=== PATIENT | female | born 1995 | race Caucasian/White ===

== ENCOUNTER 2018-05-23 14:26 | Inpatient (IN) | payer OTHER ==
[2018-05-23] MEDS: LACTATED RINGER'S 1,000 ML IV (18:18)
[2018-05-24] MEDS: LACTATED RINGER'S 1,000 ML IV ×2 (00:45→08:32)
[2018-05-24 09:42] LABS: RUPTURE FETAL MEMBRANES NEGATIVE (NEGATIVE)
== END 2018-05-24 16:35 | disposition home or self-care (01) | DRG 833 ==
LOC: OBT 14:26 → L-D 14:26 → OBT 16:15 → L-D 16:15
PROVIDERS: Obstetrics & Gynecology
DX: O41.8X30 Other specified disorders of amniotic fluid and membranes, third trimester, not applicable or unspecified (principal); Z3A.34 34 weeks gestation of pregnancy
CPT/HCPCS: 76818; 84112

== ENCOUNTER 2018-05-31 07:03 | Outpatient (CLI) | payer OTHER | END 2018-05-31 08:10 | disposition home or self-care (01) | LOC: OBT 07:03 → L-D 07:04 → OBT 08:10 | DX: O36.8330 Maternal care for abnormalities of the fetal heart rate or rhythm, third trimester, not applicable or unspecified (principal); O41.93X0 Disorder of amniotic fluid and membranes, unspecified, third trimester, not applicable or unspecified; Z3A.35 35 weeks gestation of pregnancy | CPT/HCPCS: 76818 ==

== ENCOUNTER 2018-06-03 07:21 | Outpatient (CLI) | payer OTHER ==
[2018-06-03] MEDS: LACTATED RINGER'S 1,000 ML IV (10:29)
[2018-06-03] MEDS: LACTATED RINGER'S 1,000 ML IV* ×2 (11:23→12:25)
== END 2018-06-03 14:38 | disposition home or self-care (01) ==
LOC: OBT 07:21 → L-D 07:21 → OBT 14:38
DX: O41.03X0 Oligohydramnios, third trimester, not applicable or unspecified (principal); Z3A.36 36 weeks gestation of pregnancy
CPT/HCPCS: 76816; 76818; 96360; 96361

== ENCOUNTER 2018-06-05 08:14 | Inpatient (IN) | payer OTHER ==
[2018-06-05] MEDS ORDERED: ACETAMINOPHEN 325 MG TAB PO (09:30)
[2018-06-05] MEDS: LACTATED RINGER'S 1,000 ML IV ×2 (10:40→17:01)
[2018-06-05] MEDS ORDERED: RANITIDINE 150 MG TAB PO (14:00)
[2018-06-05] MEDS ORDERED: CALCIUM CARBONATE 500 MG CHEW TAB PO (14:00)
[2018-06-05 15:23] LABS: RUPTURE FETAL MEMBRANES NEGATIVE (NEGATIVE)
[2018-06-06] MEDS: LACTATED RINGER'S 1,000 ML IV ×2 (01:30→10:14)
[2018-06-06] MEDS: PRENATAL VITAMIN PO (10:14)
[2018-06-06] MEDS: INFLUENZA VIRUS VACCINE 0.5 ML (DISPENSING) IM* (14:21)
== END 2018-06-06 14:40 | disposition home or self-care (01) | DRG 833 ==
LOC: OBT 08:14 → L-D 08:17 → OBT 09:07 → L-D 09:07 → PP1 10:50
PROVIDERS: Obstetrics & Gynecology
DX: O41.03X0 Oligohydramnios, third trimester, not applicable or unspecified (principal); Z3A.36 36 weeks gestation of pregnancy
CPT/HCPCS: 76815; 76818; 84112

== ENCOUNTER 2018-06-07 10:55 | Inpatient (IN) | payer OTHER ==
[2018-06-07] MEDS ORDERED: OXYTOCIN 30 UNITS/LR 500 ML IV (15:00)
[2018-06-07] MEDS ORDERED: IBUPROFEN 600 MG TAB PO (15:00)
[2018-06-07] MEDS ORDERED: MISOPROSTOL 200 MCG TAB PR (15:00)
[2018-06-07] MEDS ORDERED: METHYLERGONOVINE 0.2 MG INJ IM (15:00)
[2018-06-07] MEDS ORDERED: LIDOCAINE 1% (MPF) 30 ML INJ INJ (15:00)
[2018-06-07] MEDS ORDERED: CARBOPROST 250 MCG INJ IM (15:00)
[2018-06-07] MEDS: LACTATED RINGER'S 1,000 ML IV* (16:02)
[2018-06-07] MEDS: AMPICILLIN 2 GM/NS (PMX) 100 ML IV (16:02)
[2018-06-07 16:19] LABS: ADD MAN DIFF? NO
[2018-06-07 16:20] LABS: WHITE BLOOD COUNT 10.7 10^3/ul (4.8-10.8)
[2018-06-07 16:20] LABS: BASOPHILS % 0.1 % (0.0-2.0); EOSINOPHILS % 0.1 % (0.0-7.0); HEMATOCRIT 31.8 % (37.0-47.0); HEMOGLOBIN 10.5 g/dl (12.0-16.0); LYMPHOCYTES # 1.8 10^3/ul (0.8-2.9); LYMPHOCYTES % 16.7 % (15.0-51.0); MEAN CORPUSCULAR HEMOGLOBIN 29.8 pg (29.0-33.0); MEAN CORPUSCULAR VOLUME 90.3 fl (82.0-101.0); MEAN PLATELET VOLUME 11.1 fl (7.4-10.4); MONOCYTE # 0.6 10^3/ul (0.3-0.9); MONOCYTES % 5.7 % (0.0-11.0); NEUTROPHIL # 8.2 10^3/ul (1.6-7.5); NEUTROPHILS % 76.6 % (39.0-77.0); PLATELET COUNT 213 10^3/UL (140-415); RED BLOOD COUNT 3.52 10^6/ul (4.20-5.40); RED CELL DISTRIBUTION WIDTH 12.6 % (11.5-14.5)
[2018-06-07 16:42] LABS: INR 0.93; PROTIME 12.6 Sec (11.9-14.9)
[2018-06-07 16:43] LABS: PARTIAL THROMBOPLASTIN TIME 27.7 Sec (23.0-35.0)
[2018-06-07] MEDS: MISOPROSTOL 50 MCG CAPSULE PO ×2 (17:01→22:08)
[2018-06-07 17:14] LABS: HEPATITIS B SURFACE ANTIGEN NEGATIVE (NEGATIVE)
[2018-06-07] MEDS: AMPICILLIN 1 GM/NS (PMX) 50 ML IV (20:01)
[2018-06-08] MEDS: AMPICILLIN 1 GM/NS (PMX) 50 ML IV ×7 (00:11→22:47)
[2018-06-08] MEDS: MISOPROSTOL 50 MCG CAPSULE PO ×6 (02:01→21:00)
[2018-06-08] MEDS: LACTATED RINGER'S 1,000 ML IV* ×3 (02:03→20:11)
[2018-06-08 15:19] LABS: RAPID PLASMA REAGIN NONREACTIVE (NR)
[2018-06-09] MEDS: BUTORPHANOL 2 MG INJ IV ×2 (00:47→05:30)
[2018-06-09] MEDS: MISOPROSTOL 50 MCG CAPSULE PO ×2 (01:00→05:00)
[2018-06-09] MEDS: AMPICILLIN 1 GM/NS (PMX) 50 ML IV ×6 (03:05→22:30)
[2018-06-09] MEDS: DINOPROSTONE 10 MG VAG SUPP VAG (05:04)
[2018-06-09] MEDS: LACTATED RINGER'S 1,000 ML IV* ×5 (05:05→22:32)
[2018-06-09] MEDS ORDERED: FENTAnyl 2MCG/ML-ROPIV 0.2% 100 ML (09:59)
[2018-06-09] MEDS ORDERED: NALOXONE (0.4 MG/ML) INJ IV (10:30)
[2018-06-09] MEDS ORDERED: DIPHENHYDRAMINE 50 MG INJ IV (10:30)
[2018-06-09] MEDS: ONDANSETRON 4 MG INJ IV (10:59)
[2018-06-09] MEDS: FENTAnyl 2MCG/ML-ROPIV 0.2% 100 ML BAG EPI ×3 (11:15→22:45)
[2018-06-09] MEDS: OXYTOCIN 30 UNITS/LR 500 ML IV ×3 (12:20→23:56)
[2018-06-09] MEDS ORDERED: LIDOCAINE 0.5% (SDV) 50 ML INJ (19:46)
[2018-06-09] MEDS: MINERAL OIL LIGHT 10 ML VIAL TOP (21:03)
[2018-06-09] MEDS: ACETAMINOPHEN 325 MG TAB PO (22:30)
[2018-06-10] MEDS ORDERED: OXYTOCIN 30 UNITS/LR 500 ML IV (02:30)
[2018-06-10] MEDS ORDERED: MISOPROSTOL 200 MCG TAB PR (02:30)
[2018-06-10] MEDS ORDERED: IBUPROFEN 600 MG TAB PO (02:30)
[2018-06-10] MEDS ORDERED: METHYLERGONOVINE 0.2 MG INJ IM (02:30)
[2018-06-10] MEDS ORDERED: CARBOPROST 250 MCG INJ IM (02:30)
[2018-06-10] MEDS ORDERED: OXYCODONE/ASPIRIN (4.88/325) TAB PO ×2 (02:30)
[2018-06-10] MEDS ORDERED: ZOLPIDEM 5 MG TAB PO (02:30)
[2018-06-10] MEDS: IBUPROFEN 600 MG TAB PO ×4 (03:10→21:09)
[2018-06-10] MEDS: LANOLIN 7 GM TUBE TOP (03:11)
[2018-06-10] MEDS: WITCH HAZEL/GLYCERIN PAD PR (03:11)
[2018-06-10] MEDS: BENZOCAINE 20% 56 ML SPRAY TOP (03:11)
[2018-06-10] MEDS: LACTATED RINGER'S 1,000 ML IV (04:51)
[2018-06-10 08:07] LABS: ADD MAN DIFF? NO
[2018-06-10 08:11] LABS: BASOPHIL # 0.1 10^3/ul (0.0-0.1); BASOPHILS % 0.2 % (0.0-2.0); EOSINOPHILS % 0.1 % (0.0-7.0); HEMATOCRIT 30.6 % (37.0-47.0); HEMOGLOBIN 10.1 g/dl (12.0-16.0); LYMPHOCYTES # 2.6 10^3/ul (0.8-2.9); LYMPHOCYTES % 11.7 % (15.0-51.0); MEAN CORPUSCULAR HEMOGLOBIN 30.2 pg (29.0-33.0); MEAN CORPUSCULAR VOLUME 91.6 fl (82.0-101.0); MEAN PLATELET VOLUME 11.9 fl (7.4-10.4); MONOCYTE # 1.2 10^3/ul (0.3-0.9); MONOCYTES % 5.5 % (0.0-11.0); NEUTROPHILS % 81.8 % (39.0-77.0); PLATELET COUNT 193 10^3/UL (140-415); RED BLOOD COUNT 3.34 10^6/ul (4.20-5.40); RED CELL DISTRIBUTION WIDTH 12.7 % (11.5-14.5)
[2018-06-10] MEDS: SENNA/DOCUSATE NA (8.6MG/50MG) TAB PO ×2 (10:03→21:08)
[2018-06-10 19:23] LABS: ADD MAN DIFF? NO
[2018-06-10 19:25] LABS: BASOPHILS % 0.1 % (0.0-2.0); EOSINOPHILS # 0.1 10^3/ul (0.0-0.5); EOSINOPHILS % 0.4 % (0.0-7.0); HEMATOCRIT 29.9 % (37.0-47.0); LYMPHOCYTES # 2.7 10^3/ul (0.8-2.9); LYMPHOCYTES % 14.6 % (15.0-51.0); MEAN CORPUSCULAR HEMOGLOBIN 30.6 pg (29.0-33.0); MEAN CORPUSCULAR HGB CONC 33.4 g/dl (32.0-37.0); MEAN CORPUSCULAR VOLUME 91.4 fl (82.0-101.0); MEAN PLATELET VOLUME 11.5 fl (7.4-10.4); MONOCYTES % 5.4 % (0.0-11.0); NEUTROPHIL # 14.3 10^3/ul (1.6-7.5); NEUTROPHILS % 78.9 % (39.0-77.0); PLATELET COUNT 202 10^3/UL (140-415); RED BLOOD COUNT 3.27 10^6/ul (4.20-5.40); RED CELL DISTRIBUTION WIDTH 12.6 % (11.5-14.5)
[2018-06-10 19:25] LABS: WHITE BLOOD COUNT 18.2 10^3/ul (4.8-10.8)
[2018-06-10] MEDS: HYDROCORTISONE 1% 28 GM CR TOP (21:08)
[2018-06-11] MEDS: IBUPROFEN 600 MG TAB PO ×4 (03:12→21:06)
[2018-06-11] MEDS: SENNA/DOCUSATE NA (8.6MG/50MG) TAB PO ×2 (09:06→21:06)
[2018-06-11] MEDS: HYDROCORTISONE 1% 28 GM CR TOP ×2 (09:06→21:06)
[2018-06-11 12:23] LABS: ADD MAN DIFF? NO
[2018-06-11 12:26] LABS: WHITE BLOOD COUNT 12.5 10^3/ul (4.8-10.8)
[2018-06-11 12:26] LABS: BASOPHILS % 0.2 % (0.0-2.0); EOSINOPHILS # 0.1 10^3/ul (0.0-0.5); EOSINOPHILS % 0.4 % (0.0-7.0); HEMATOCRIT 27.7 % (37.0-47.0); HEMOGLOBIN 9.2 g/dl (12.0-16.0); LYMPHOCYTES # 2.1 10^3/ul (0.8-2.9); MEAN CORPUSCULAR HEMOGLOBIN 30.6 pg (29.0-33.0); MEAN CORPUSCULAR HGB CONC 33.2 g/dl (32.0-37.0); MEAN PLATELET VOLUME 11.6 fl (7.4-10.4); MONOCYTE # 0.7 10^3/ul (0.3-0.9); MONOCYTES % 5.6 % (0.0-11.0); NEUTROPHIL # 9.5 10^3/ul (1.6-7.5); NEUTROPHILS % 76.2 % (39.0-77.0); PLATELET COUNT 168 10^3/UL (140-415); RED BLOOD COUNT 3.01 10^6/ul (4.20-5.40); RED CELL DISTRIBUTION WIDTH 12.8 % (11.5-14.5)
[2018-06-11] MEDS: MEASLES,MUMPS,RUBELLA VACCINE INJ SC* (18:25)
[2018-06-12] MEDS: IBUPROFEN 600 MG TAB PO ×2 (03:10→08:44)
[2018-06-12] MEDS: SENNA/DOCUSATE NA (8.6MG/50MG) TAB PO (08:44)
[2018-06-12] MEDS: HYDROCORTISONE 1% 28 GM CR TOP (08:44)
[2018-06-12] MEDS: DIPHTH/TET/ACEL PERTUSS (ADULT) 0.5 ML VIAL IM* (11:00)
== END 2018-06-12 13:52 | disposition home or self-care (01) | DRG 807 ==
LOC: OBT 10:55 → PP1 06-10 01:42 → L-D 10:55 → OBT 12:45 → L-D 12:45
PROVIDERS: Obstetrics & Gynecology
PROC: 10E0XZZ Delivery of Products of Conception, External Approach (ICD-10-PCS; principal; 2018-06-09)
PROC: 3E033VJ Introduction of Other Hormone into Peripheral Vein, Percutaneous Approach (ICD-10-PCS; 2018-06-09)
DX: O41.03X0 Oligohydramnios, third trimester, not applicable or unspecified (principal); Z37.0 Single live birth; Z3A.37 37 weeks gestation of pregnancy
CPT/HCPCS: 62319; 76815; 76818; 85025; 85610; 85730; 86592; 86900; 86901; 87070; 87340; 88307; 99464